=== PATIENT | male | born 1975 | race Caucasian/White ===

== ENCOUNTER 2018-04-25 22:50 | Inpatient (IN) | payer SELFPAY ==
[~2018-04-25] VITALS: Ht 182.9 cm; Wt 119.3 kg
--- NOTE | 2018-04-25 23:00 | NUR ---
PT BIBRA COMPLAINING OF BILATERAR LOWER LEG PAIN AND SWELLING. REDNESS NOTED. PT STATES HE HAS HAD THE SWELLING X 2 MONTHS, PROGRESSIVELY GETTING WORSE. PT STATES HE HAS CHEST PAIN X 1 DAY. PT AAXO4. RESPIRATIONS EVEN AND UNLABORED. PT PUT ON THE MONITOR AND PENDING EVAL FROM ER MD.
--- NOTE | 2018-04-25 23:27 | NUR ---
NEIGHBORHOOD CONSERVATION OFFICER AT BEDSIDE. LABS SENT.
--- NOTE | 2018-04-25 23:28 | NUR ---
EMT AT BEDSIDE FOR EKG.
[2018-04-25] MEDS ORDERED: MORPHINE SULFATE INJ 2 MG/ML DISP.SYRIN IV ONE (23:30)
[2018-04-25] MEDS ORDERED: ONDANSETRON HCL/PF 4 MG/2 ML VIAL IV ONE (23:30)
[2018-04-25 23:31] LABS: BASOPHILS # (AUTO) 0.1 /CMM (0.0-0.2); BASOPHILS % (AUTO) 0.4 % (0.0-2.0); EOSINOPHILS % (AUTO) 0.3 % (0.0-6.0); HEMATOCRIT 45 % (39-51); HEMOGLOBIN 15.6 g/dL (13.5-17.5); LYMPHOCYTES # (AUTO) 0.6 /CMM (0.8-4.8); LYMPHOCYTES % (AUTO) 3.7 % (20.0-44.0); MEAN CORPUSCULAR HGB CONC 35 g/dl (31.0-36.0); MEAN CORPUSCULAR VOLUME 86 fL (80-96); MONOCYTES # (AUTO) 1.3 /CMM (0.1-1.30); MONOCYTES % (AUTO) 8.2 % (2.0-12.0); NEUTROPHILS # (AUTO) 14.1 /CMM (1.8-8.9); NEUTROPHILS % (AUTO) 87.4 % (43.0-81.0); PLATELET COUNT (AUTO) 198 /CMM (150-450); RED BLOOD CELL COUNT(AUTO) 5.26 MIL/uL (4.5-6.0); WHITE BLOOD COUNT (AUTO) 16.2 K/uL (4.3-11.0)
[2018-04-25] MEDS ORDERED: ONDANSETRON HCL/PF 4 MG/2 ML VIAL ONE (23:42)
[2018-04-25] MEDS ORDERED: MORPHINE SULFATE INJ 4 MG/ML DISP.SYRIN ONE (23:42)
[2018-04-25] MEDS ORDERED: VANCOMYCIN 1 GM VIAL ONE (23:42)
[2018-04-25 23:44] LABS: CALCIUM, SERUM 8.8 mg/dL (8.5-10.1); CARBON DIOXIDE 29 mmol/L (21-32); CHLORIDE 100 mmol/L (98-107); CREATININE 1.1 mg/dL (0.6-1.3); GLUCOSE 154 mg/dL (74-106); POTASSIUM 4.2 mmol/L (3.5-5.1); SODIUM SERUM 137 mmol/L (136-145); UREA NITROGEN, BLOOD 14 mg/dL (7-18)
[2018-04-25 23:50] LABS: ALANINE AMINOTRANSFERASE 95 U/L (12-78); ALBUMIN 4.2 g/dL (3.4-5.0); ALCOHOL, BLOOD < 3 mg/dL (0-0); ALKALINE PHOSPHATASE 113 U/L (46-116); ASPARTATE AMINOTRANSFERASE 39 U/L (15-37); BILIRUBIN,DIRECT 0.2 mg/dL (0.0-0.2); BILIRUBIN,TOTAL 0.8 mg/dL (0.2-1.0); TOTAL PROTEIN, SERUM 7.9 g/dL (6.4-8.2)
--- NOTE | 2018-04-25 23:50 | NUR ---
PT AMBULATORY WITH STEADY GAIT TO BATHROOM. URINE SAMPLE OBTAINED AND SENT TO LAB.
[2018-04-25 23:51] LABS: ACETAMINOPHEN 0 ug/ml (10-30); SALICYLATE 2.7 mg/dL (2.8-20.0)
[2018-04-26] VITALS (7 sets, daily range): BP systolic 121–154; BP diastolic 64–92
[2018-04-26] MEDS ORDERED: VANCOMYCIN 1 GM in IV D5W 250 ML IV ONE ×2
--- NOTE | 2018-04-26 00:08 | NUR ---
MECHANICAL SERVICE SPECIALIST AT BEDSIDE.
[2018-04-26 00:17] LABS: APPEARANCE,URINE CLEAR (CLEAR); BILIRUBIN,URINE NEGATIVE (NEGATIVE); BLOOD, URINE 1+ Ery/uL (NEGATIVE); COLOR,URINE YELLOW (YELLOW); KETONES,URINE NEGATIVE (NEGATIVE); LEUKOCYTE ESTERASE ,URINE NEGATIVE (NEGATIVE); NITRITE, URINE NEGATIVE (NEGATIVE); PROTEIN,URINE 1+ mg/dl (NEGATIVE); UGLUCOSE NEGATIVE (NEGATIVE)
[2018-04-26 00:24] LABS: D-DIMER 0.44 mg/L(FEU (0.17-0.50)
--- NOTE | 2018-04-26 00:25 | NUR ---
N[facility] Sup called for tele bed.
--- NOTE | 2018-04-26 00:25 | NUR ---
Patient being monitored and is resting comfortably in bed with eyes closed. Easily aroused. Medication infusing.
[2018-04-26 00:30] LABS: BACTERIA,URINE None seen /HPF (None Seen); WBC,URINE 0-2 /HPF (0-3)
--- NOTE | 2018-04-26 00:30 | NUR ---
[address] L[address] NP PAGED.
[2018-04-26 00:31] LABS: MUCUS,URINE Many /LPF (None Seen); SQUAMOUS EPITHELIAL CELL,UR Few /HPF (None Seen)
[2018-04-26] MEDS ORDERED: IV NS 0.9% 1,000 ML IV PRN (00:46)
[2018-04-26] MEDS ORDERED: MAGNESIUM HYDROXIDE 30 ML UDC PO PRN (01:00)
[2018-04-26] MEDS ORDERED: MAG HYDROX/AL HYDROX/SIMETH 30 ML UDC PO PRN (01:00)
[2018-04-26] MEDS ORDERED: ZOLPIDEM TARTRATE 5 MG TABLET PO PRN (01:00)
[2018-04-26] MEDS ORDERED: ONDANSETRON HCL/PF 4 MG/2 ML VIAL IVP PRN (01:00)
[2018-04-26] MEDS ORDERED: Z GUARD REMEDY 2 OZ OINT TP PRN (01:00)
--- NOTE | 2018-04-26 01:12 | NUR ---
[facility] CALLED FOR BED, NO BED AT THIS TIME. WILL FOLLOW UP
--- NOTE | 2018-04-26 01:58 | NUR ---
Nahomy hartman in [facility] - 04/26/18 at 0207 by ANITA Report given to Dianne OCHOA for CHARMAINE.
--- NOTE | 2018-04-26 02:07 | NUR ---
Report given to Vahe OCHOA for CHARMAINE. Tele room 312.
--- NOTE | 2018-04-26 02:15 | NUR ---
ICE BAG ASSEMBLERSEA KAYAKING GUIDE NOTE: PT ADMITTED FROM ER VIA [facility] WITH ADMITTING DIAGNOSIS OF CELLULITIS ON RLE AND CHEST PAIN. PT IS ALERT AND ORIENTED X2-3. NO APPARENT DISTRESS NOTED. DENIES PAIN AND DISCOMFORT AT THIS TIME. ON 2LPM NASAL CANNULA, NO SOB NOTED. SINUS TACHY ON TELE MONITOR HR 116BPM. IV ON RIGHT AC #20 INTACT AND PATENT, FLUSHING WELL. PERTINENT ASSESSMENTS DONE. REDNESS/SWELLING AND MULTIPLE SCABS NOTED ON BLE, REDNESS ALSO NOTED ON SACRUM/BUTTOCKS/GROIN. PICTURES TAKEN AND PLACED ON CHART. CALL LIGHT PLACED WITHIN REACH. KEPT CLEAN, DRY AND COMFORTABLE. SAFETY AND FALL PRECAUTIONS OBSERVED AND MAINTAINED. WILL CONTINUE TO MONITOR PT.
[2018-04-26] MEDS ORDERED: CEFTRIAXONE 2 G in IV D5W 100 ML IV SCH ×2 (03:00→04:00)
[2018-04-26] MEDS ORDERED: CEFTRIAXONE 1 G VIAL ONE ×2 (03:51)
[2018-04-26] MEDS ORDERED: ENOXAPARIN SODIUM 40 MG/0.4 ML DISP.SYRIN SQ ONE (04:00)
[2018-04-26] MEDS: CEFTRIAXONE IV SCH ×2 (04:09→04:46)
[2018-04-26] MEDS: D5W IV SCH ×2 (04:09→04:46)
--- NOTE | 2018-04-26 04:10 | NUR ---
INSPECTOR POISING NOTE: ROCEPHIN 2G IV NOT AVAILABLE. PER PHARMACY, OK TO GIVE 2BAGS OF 1G ROCEPHIN 30MINS AFTER EACH BAG.
[2018-04-26] MEDS: HYDROMORPHONE 1 MG/1 ML DISP.SYRIN IV PRN ×3 (04:16→15:49)
--- NOTE | 2018-04-26 06:51 | NUR ---
LOW EMISSION AUTOMOBILE DESIGNER NOTE: NO CHANGES NOTED THROUGHOUT THE SHIFT. NO APPARENT DISTRESS NOTED. DENIES PAIN AND DISCOMFORT AT THIS TIME. NO SOB NOTED. ON TELE MONITOR SINUS TACHY HR 123BPM. IV ON RIGHT AC #20 INTACT AND PATENT, IVF INFUSING WELL. KEPT CLEAN, DRY AND COMFORTABLE. SAFETY AND FALL PRECAUTIONS OBSERVED AND MAINTAINED. WILL ENDORSE TO DAY SHIFT RN FOR CONTINUITY OF CARE.
[2018-04-26] MEDS ORDERED: FEE PK DOSING 1 MIN EA MC ONE (07:21)
--- NOTE | 2018-04-26 07:24 | NUR ---
ROUTE RIDER OPENING NOTES RECEIVED PATIENT IN BED SLEEPING. ABLE TO AROUSE WITH VOICE AND TOUCH A/O X4 . NO SIGNS OR SYMPTOMS OF RESPIRATORY DISTRESS OR ACUTE PAIN NOTED SINUS TACHY ON THE MONITOR. RIGHT AC # 20 RUNNING NS @ 75 ML/HR. SAFETY PRECAUTIONS IN PLACE BED IN LOW POSITION CALL LIGHT WITHIN REACH WILL CONT TO MONITOR
[2018-04-26 07:27] LABS: BASOPHILS % (AUTO) 0.2 % (0.0-2.0); HEMATOCRIT 41 % (39-51); HEMOGLOBIN 14.2 g/dL (13.5-17.5); LYMPHOCYTES # (AUTO) 0.5 /CMM (0.8-4.8); LYMPHOCYTES % (AUTO) 3.3 % (20.0-44.0); MEAN CORPUSCULAR HGB CONC 35 g/dl (31.0-36.0); MEAN CORPUSCULAR VOLUME 86 fL (80-96); MONOCYTES % (AUTO) 6.3 % (2.0-12.0); NEUTROPHILS # (AUTO) 14.6 /CMM (1.8-8.9); NEUTROPHILS % (AUTO) 90.2 % (43.0-81.0); PLATELET COUNT (AUTO) 166 /CMM (150-450); RED BLOOD CELL COUNT(AUTO) 4.76 MIL/uL (4.5-6.0); WHITE BLOOD COUNT (AUTO) 16.2 K/uL (4.3-11.0)
[2018-04-26 07:41] LABS: MAGNESIUM 1.5 mg/dL (1.8-2.4); PHOSPHORUS 3.7 mg/dL (2.5-4.9); POTASSIUM 3.6 mmol/L (3.5-5.1)
[2018-04-26] MEDS ORDERED: LISI-603 PO (08:34)
[2018-04-26 08:58] LABS: BAND % (MANUAL) 9 % (0.0-5.0); LYMPHOCYTES % (MANUAL) 6 % (16-48); MONOCYTES % (MANUAL) 6 % (0-11.0); NEUTROPHILS % (MANUAL) 79 (42-76)
[2018-04-26] MEDS: VANCOMYCIN 1.25 GM in IV D5W 500 ML IV SCH ×2 (09:15→17:00)
[2018-04-26] MEDS: Magnesium 1GM/D5W 100ML PREMIX 100 ML IV SCH ×2 (10:34→11:50)
[2018-04-26] MEDS: IV NS 0.9% 1,000 ML IV PRN ×2 (10:36→20:26)
--- NOTE | 2018-04-26 19:10 | NUR ---
WHITEPRINTING MACHINE OPERATOR OPENING NOTES Received patient sitting up in bed, watching TV. Alert, oriented x 3. Breathing even and unlabored. Not in any distress. No complaints as of this time. Tele monitor in place, sinus tach 107. Peripheral IV on RAC g20 infusing at 125mL/hr. Safety measures in place; call dorman within reach. Bed in low, locked position. Patient stable as endorsed by the morning nurse. Will continue to monitor accordingly
--- NOTE | 2018-04-26 19:14 | NUR ---
BACK HAND NOTES NO SIGNIFICANT CHANGES THROUGH OUT THE SHIFT. PT ANXIOUS AT TIMES AMBULATORY IN ROOM. DILAUDID 1 MG GIVEN X2 FOR CHEST PAIN WITH POSITIVE RESULTS. IVF RUNNING @ 125 ML/HR NS. WILL ENDORSE TO NOC
[2018-04-26] MEDS ORDERED: ENOXAPARIN SODIUM 40 MG/0.4 ML DISP.SYRIN SQ SCH ×2 (21:00)
[2018-04-27] VITALS: BP 136/87
[2018-04-27] MEDS: HYDROMORPHONE 1 MG/1 ML DISP.SYRIN IV PRN ×3 (00:39→09:57)
--- NOTE | 2018-04-27 00:40 | NUR ---
CONCRETE PIPE MAKER NOTES Patient c/o BLE pain, 11/18. Dilaudid 1mg given as ordered. Will continue to monitor
[2018-04-27] MEDS: VANCOMYCIN 1.25 GM in IV D5W 500 ML IV SCH ×2 (01:01→09:44)
[2018-04-27 04:07] VITALS: BP 114/75
[2018-04-27] MEDS ORDERED: CEFTRIAXONE 2 G in IV D5W 100 ML IV SCH (05:00)
--- NOTE | 2018-04-27 05:42 | NUR ---
FRAME OPENER NOTES Patient c/o BLE pain, 11/18. Dilaudid 1mg given as ordered. Will continue to monitor
--- NOTE | 2018-04-27 06:40 | NUR ---
RAWHIDE TRIMMER CLOSING NOTES Patient still sleeping, but easily arousable. Breathing even and unlabored. Not in any distress. No complaints as of this time. Tele monitor in place, sinus rhythm 88 with BBB. Peripheral IV on RAC g20 infusing at 125mL/hr. All needs attended to. All medications given as ordered. No acute changes overnight. Safety measures in place; call dorman within reach. Bed in low, locked position. Will endorse CHARMAINE to oncoming RN
[2018-04-27] MEDS: IV NS 0.9% 1,000 ML IV PRN (06:43)
[2018-04-27 08:00] VITALS: BP 137/85
--- NOTE | 2018-04-27 08:00 | NUR ---
SCREEN REPAIRER CRUSHER NOTES Patient resting comfortably but easily arousable. Breathing even and unlabored. Not in any distress. No complaints as of this time. Tele monitor in place, sinus rhythm Peripheral IV on RAC g20 infusing at 125mL/hr. All needs attended to. . No acute changes overnight. Safety measures in place; call dorman within reach. Bed in low, locked position. Will cont to monitor closely , plan of care discussed with patent Addendum: 04/27/18 at 1539 by GAIL ELLER RN [id number] no acute changes noted at this time
[2018-04-27 09:08] VITALS: BP 137/85
[2018-04-27 09:40] LABS: CALCIUM, SERUM 8.1 mg/dL (8.5-10.1); POTASSIUM 3.7 mmol/L (3.5-5.1)
[2018-04-27 09:41] LABS: CREATININE 0.9 mg/dL (0.6-1.3); MAGNESIUM 2.1 mg/dL (1.8-2.4)
[2018-04-27 10:42] LABS: BASOPHILS % (AUTO) 0.3 % (0.0-2.0); EOSINOPHILS % (AUTO) 0.6 % (0.0-6.0); HEMATOCRIT 39 % (39-51); HEMOGLOBIN 13.7 g/dL (13.5-17.5); LYMPHOCYTES % (AUTO) 11.3 % (20.0-44.0); MEAN CORPUSCULAR HGB CONC 35 g/dl (31.0-36.0); MEAN CORPUSCULAR VOLUME 86 fL (80-96); MONOCYTES # (AUTO) 0.8 /CMM (0.1-1.30); MONOCYTES % (AUTO) 9.3 % (2.0-12.0); NEUTROPHILS # (AUTO) 7.1 /CMM (1.8-8.9); NEUTROPHILS % (AUTO) 78.5 % (43.0-81.0); PLATELET COUNT (AUTO) 145 /CMM (150-450); RED BLOOD CELL COUNT(AUTO) 4.55 MIL/uL (4.5-6.0)
--- NOTE | 2018-04-27 10:54 | NUR ---
local telephone operator note c\o pain both legs and headache, dr lucia at bedside with order ct head ,order carried out
[2018-04-27] MEDS ORDERED: TRAMADOL HCL 50 MG TABLET PO PRN (11:30)
[2018-04-27 12:00] VITALS: BP 159/89
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
--- NOTE | 2018-04-27 15:00 | NUR ---
INDUSTRIAL RELATIONS ANALYST NOTE PATIENT REFUSED TO DO PX UPON LEAVING HOSPITAL ON RT LEG, EXPLAINED THAT PER HOSPITAL POLICY PX NEED TO BE DONE, STILL REUSING
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
[2018-04-27 15:37] VITALS: BP 157/78
== END 2018-04-27 14:55 | disposition left against medical advice (07) | DRG 602 ==
LOC: ER 22:51 → TELE 04-26 01:59 → TELE1 04-26 02:09
PROVIDERS: ADMIT Internal Medicine; ATTEND Internal Medicine
DX: L03.116 Cellulitis of left lower limb (principal); G92 Toxic encephalopathy; L03.115 Cellulitis of right lower limb; I10 Essential (primary) hypertension; F32.9 Major depressive disorder, single episode, unspecified; Z88.6 Allergy status to analgesic agent; F15.10 Other stimulant abuse, uncomplicated; Z88.5 Allergy status to narcotic agent; Z59.0 Homelessness; E78.5 Hyperlipidemia, unspecified; F41.9 Anxiety disorder, unspecified; Z79.899 Other long term (current) drug therapy
CPT/HCPCS: 36415; 71045-TC; 80048-TC; 80061-TC; 80076-TC; 80202-TC; 80305; 81000-TC; 83605-TC; 83735-TC; 84100-TC; 84443-TC; 84484-TC; 85025-TC; 85378-TC; 85610-TC; 87040-TC; 87081-TC; 93307-TC; 93970-TC; G0378; G0480; J0696; J1170; J1650; J2270; J2405; J3370; J3475; J7030; J7060